=== PATIENT | female | born 1960 | race Caucasian/White ===

== ENCOUNTER 2022-03-28 10:05 | Outpatient (CLI) | payer MEDICARE, OTHER, SELFPAY | END 2022-03-28 10:06 | disposition home or self-care (01) | PROVIDERS: Visit Provider Family Medicine | DX: M54.16 Radiculopathy, lumbar region (principal); M51.36 Other intervertebral disc degeneration, lumbar region | CPT/HCPCS: 62323; J0702; Q9966 ==

== ENCOUNTER 2022-10-03 09:42 | Outpatient (CLI) | payer MEDICARE, OTHER, SELFPAY | END 2022-10-03 09:43 | disposition home or self-care (01) | PROVIDERS: Visit Provider Family Medicine | DX: M47.816 Spondylosis without myelopathy or radiculopathy, lumbar region (principal) | CPT/HCPCS: 64493; 64494; J0702; Q9966 ==

== ENCOUNTER 2023-02-27 09:41 | Outpatient (CLI) | payer MEDICARE, OTHER, SELFPAY | END 2023-02-27 09:42 | disposition home or self-care (01) | LOC: INJ CL 09:46 | PROVIDERS: Visit Provider Family Medicine | DX: M47.816 Spondylosis without myelopathy or radiculopathy, lumbar region (principal) | CPT/HCPCS: 64493; J0702; Q9966 ==